=== PATIENT | male | born 1995 | race Caucasian/White ===

== ENCOUNTER 2016-12-20 13:14 | Emergency (ER) | payer OTHER ==
[2016-12-20 13:20] VITALS: BP 146/95
== END 2016-12-20 16:57 | disposition home or self-care (01) ==
LOC: ED 13:14
DX: H66.92 Otitis media, unspecified, left ear (principal); E11.9 Type 2 diabetes mellitus without complications; F99 Mental disorder, not otherwise specified; Z79.899 Other long term (current) drug therapy
CPT/HCPCS: J0696